=== PATIENT | male | born 1980 | race Caucasian/White ===

== ENCOUNTER 2020-09-30 10:11 | Emergency (ER) | payer MEDICAID ==
[~2020-09-30] VITALS: Ht 177.8 cm; Wt 78.6 kg
[2020-09-30 10:32] VITALS: BP 135/83
[2020-09-30] MEDS ORDERED: FLUORESCEIN/BENOXINATE 5 ML DROPS OP ONE (11:00)
--- NOTE | 2020-09-30 11:06 | NUR ---
DISCHARGE LEFT EYE AND BILATERAL EYE ERYTHEMA. MD EXAM COMPLETED. EYE DROPS REQUESTED FROM PHARMACY
[2020-09-30] MEDS ORDERED: CIPROFLOXACIN OPHTH SOLN 0.3%, 5ML LEFTEYE SCH (11:30)
== END 2020-09-30 12:06 | disposition home or self-care (01) ==
LOC: ED 11:26
DX: H10.32 Unspecified acute conjunctivitis, left eye (principal)
CPT/HCPCS: 99283